=== PATIENT | male | born 1975 | race Caucasian/White ===

== ENCOUNTER 2020-01-27 13:23 | Inpatient (IN) | payer OTHER ==
[~2020-01-27] VITALS: Ht 182.9 cm; Wt 126.2 kg
--- NOTE | 2020-01-27 13:48 | NUR ---
dr lacey spoke with dr serna
[2020-01-27] MEDS ORDERED: testosterone IM (14:03)
[2020-01-27] MEDS ORDERED: LISI40TA PO (14:03)
--- NOTE | 2020-01-27 14:06 | NUR ---
pt notes generalized abd pain x 1 week, worsening x 2 days. pt notes he had emesis x 1 but otherwise denies n/v/d. pt is a&ox4, resps even and unlabored. no n/v at this time. bp and spo2 monitors in place. call light in reach. POC to admit for IV abx discussed between pt and MD. per MD lacey, no blood cx indicated before IV abx admin. at bedside. awaiting mill recorder from .
[2020-01-27] MEDS ORDERED: SODIUM CHLORIDE 0.9% 1,000 ML IV ONE (14:12)
[2020-01-27] MEDS ORDERED: ONDANSETRON 2MG/ML, 2ML ONE (14:15)
[2020-01-27] MEDS ORDERED: MORPHINE SULFATE 4 MG/ML, 1ML ONE (14:15)
[2020-01-27] MEDS ORDERED: CEFTRIAXONE PMX 1GM/50ML 50 ML ONE (14:15)
[2020-01-27 14:29] LABS: BASOPHILS # (AUTO) 0.01 x10^3/uL (0-0.1); BASOPHILS % (AUTO) 0 % (0-1); EOSINOPHILS # (AUTO) 0.27 x10^3/uL (0-0.4); EOSINOPHILS % (AUTO) 2 % (1-7); LYMPHOCYTES # (AUTO) 1.58 x10^3/uL (1-3.4); LYMPHOCYTES % (AUTO) 13 % (22-44); MD NO; MEAN CORPUSCULAR HEMOGLOBIN 28.1 pg (27.5-34.5); MEAN CORPUSCULAR HGB CONC 32.6 g/dL (33.2-36.2); MEAN PLATELET VOLUME 8.4 fL (7.4-10.4); MONOCYTES # (AUTO) 0.84 x10^3/uL (0.2-0.8); MONOCYTES % (AUTO) 7 % (2-9); NEUTROPHILS # (AUTO) 9.75 x10^3/uL (1.8-6.8); NEUTROPHILS % (AUTO) 78 % (42-75); PLATELET COUNT 270 x10^3/uL (130-400); RED BLOOD COUNT 6.43 x10^6/uL (4.38-5.82); RED CELL DISTRIBUTION WIDTH 15.3 % (9.4-14.8)
[2020-01-27] MEDS ORDERED: MORPHINE SULFATE 4 MG/ML, 1ML IVPush PRN (14:30)
[2020-01-27] MEDS ORDERED: METRONIDAZOLE PMX 500MG/100ML 100 ML IV ONE (14:30)
[2020-01-27] MEDS ORDERED: ONDANSETRON 2MG/ML, 2ML IVPush ONE (14:30)
[2020-01-27] MEDS ORDERED: CEFTRIAXONE PMX 1GM/50ML 50 ML IV ONE (14:30)
--- NOTE | 2020-01-27 14:36 | NUR ---
pt states pain level is 2/10 from 9/10, generalized abd pain. pt is a&o, resps even and unlabored, no n/v. rocephin infusing per emar. pt tolerating meds well, spo2 decreased to 89% on room air s/p morphine, oxygen applied via NC at 2L/min. at bedside. pt awaiting lab results, admit orders and room assignment at this time.
--- NOTE | 2020-01-27 14:38 | NUR ---
report given to primary RN Flores.
[2020-01-27 14:39] LABS: ALANINE AMINOTRANSFERASE 31 U/L (12-78); ALBUMIN 3.1 g/dL (3.4-5.0); ANION GAP 4 mmol/L (5-15); CALCIUM 8.7 mg/dL (8.5-10.1); CHLORIDE 106 mmol/L (98-107); CREATININE 1.12 mg/dL (0.7-1.3)
[2020-01-27 14:41] LABS: ALKALINE PHOSPHATASE 60 U/L (45-117); BILIRUBIN,TOTAL 0.7 mg/dL (0.2-1.0); TOTAL PROTEIN 7.7 g/dL (6.4-8.2)
[2020-01-27] MEDS ORDERED: METRONIDAZOLE PMX 500MG/100ML 100 ML ONE (15:21)
--- NOTE | 2020-01-27 15:25 | NUR ---
Pt ambulatory to bathroom and back to bed without difficulty. Pt denies pain at this time. Pt denies other needs. GI MD at bedside to evluate pt.
[2020-01-27] MEDS ORDERED: POLYETHYLENE GLYCOL 17 GM PACKET PO PRN (16:30)
[2020-01-27] MEDS ORDERED: DOCUSATE 100 MG CAPSULE PO PRN (16:30)
[2020-01-27] MEDS ORDERED: ONDANSETRON 2MG/ML, 2ML IVPush PRN (16:30)
[2020-01-27] MEDS ORDERED: ONDANSETRON ODT 4 MG PO PRN (16:30)
[2020-01-27] MEDS: NS + 20MEQ KCL 1,000 ML IV SCH (18:12)
[2020-01-27] MEDS: ACETAMINOPHEN 500 MG TABLET PO PRN (18:12)
[2020-01-27 20:47] VITALS: BP 155/89
[2020-01-27] MEDS: HEPARIN 5,000 UNITS/ML, 1ML SQ SCH (20:57)
[2020-01-27] MEDS: METRONIDAZOLE PMX 500MG/100ML 100 ML IV SCH (23:35)
[2020-01-28 02:53] VITALS: BP 157/96
[2020-01-28] MEDS: morphine SULFATE 10 MG/ML, 1ML IVPush PRN ×3 (03:17→15:52)
[2020-01-28] MEDS: NS + 20MEQ KCL 1,000 ML IV SCH (03:17)
[2020-01-28] MEDS: HEPARIN 5,000 UNITS/ML, 1ML SQ SCH ×3 (05:00→21:00)
[2020-01-28 06:37] LABS: BASOPHILS # (AUTO) 0.04 x10^3/uL (0-0.1); BASOPHILS % (AUTO) 0 % (0-1); EOSINOPHILS # (AUTO) 0.34 x10^3/uL (0-0.4); EOSINOPHILS % (AUTO) 3 % (1-7); LYMPHOCYTES % (AUTO) 17 % (22-44); MD NO; MEAN CORPUSCULAR HEMOGLOBIN 28.5 pg (27.5-34.5); MEAN CORPUSCULAR HGB CONC 32.3 g/dL (33.2-36.2); MEAN CORPUSCULAR VOLUME 88.2 fL (81-97); MEAN PLATELET VOLUME 8.6 fL (7.4-10.4); MONOCYTES # (AUTO) 0.71 x10^3/uL (0.2-0.8); MONOCYTES % (AUTO) 7 % (2-9); NEUTROPHILS # (AUTO) 7.51 x10^3/uL (1.8-6.8); NEUTROPHILS % (AUTO) 73 % (42-75); PLATELET COUNT 254 x10^3/uL (130-400); RED BLOOD COUNT 6.09 x10^6/uL (4.38-5.82); RED CELL DISTRIBUTION WIDTH 14.7 % (9.4-14.8)
[2020-01-28 06:42] LABS: ALBUMIN 2.8 g/dL (3.4-5.0); ANION GAP 4 mmol/L (5-15); CALCIUM 8.3 mg/dL (8.5-10.1); CHLORIDE 109 mmol/L (98-107)
[2020-01-28 06:46] LABS: ALANINE AMINOTRANSFERASE 27 U/L (12-78); ALKALINE PHOSPHATASE 54 U/L (45-117); BILIRUBIN,TOTAL 0.6 mg/dL (0.2-1.0); CREATININE 1.01 mg/dL (0.7-1.3)
[2020-01-28] MEDS: METRONIDAZOLE PMX 500MG/100ML 100 ML IV SCH ×3 (07:54→23:53)
[2020-01-28] MEDS: ACETAMINOPHEN 500 MG TABLET PO PRN ×2 (07:57→14:29)
[2020-01-28] MEDS: LISINOPRIL 40 MG TABLET PO SCH (07:57)
[2020-01-28 07:58] VITALS: BP 157/95
[2020-01-28] MEDS: CEFTRIAXONE PMX 1GM/50ML 50 ML IV SCH (14:26)
[2020-01-28 15:08] VITALS: BP 163/93
[2020-01-28 19:50] VITALS: BP 168/100
[2020-01-28] MEDS: HYDROcodone/APAP 5/325 TABLET PO PRN (20:07)
[2020-01-28 21:50] VITALS: BP 156/91
[2020-01-29] VITALS: BP 163/90
[2020-01-29] MEDS: LISINOPRIL 40 MG TABLET PO SCH (01:39)
[2020-01-29 02:16] VITALS: BP 172/116
[2020-01-29] MEDS: HEPARIN 5,000 UNITS/ML, 1ML SQ SCH ×2 (05:00→12:52)
[2020-01-29 05:26] LABS: BASOPHILS # (AUTO) 0.05 x10^3/uL (0-0.1); BASOPHILS % (AUTO) 1 % (0-1); EOSINOPHILS # (AUTO) 0.38 x10^3/uL (0-0.4); EOSINOPHILS % (AUTO) 4 % (1-7); LYMPHOCYTES # (AUTO) 1.65 x10^3/uL (1-3.4); LYMPHOCYTES % (AUTO) 18 % (22-44); MD NO; MEAN CORPUSCULAR HEMOGLOBIN 28.3 pg (27.5-34.5); MEAN CORPUSCULAR HGB CONC 32.5 g/dL (33.2-36.2); MEAN CORPUSCULAR VOLUME 87.2 fL (81-97); MEAN PLATELET VOLUME 8.7 fL (7.4-10.4); MONOCYTES % (AUTO) 9 % (2-9); NEUTROPHILS # (AUTO) 6.43 x10^3/uL (1.8-6.8); NEUTROPHILS % (AUTO) 69 % (42-75); PLATELET COUNT 282 x10^3/uL (130-400); RED BLOOD COUNT 5.89 x10^6/uL (4.38-5.82); RED CELL DISTRIBUTION WIDTH 14.8 % (9.4-14.8)
[2020-01-29 05:40] LABS: CHLORIDE 105 mmol/L (98-107)
[2020-01-29 05:44] LABS: ANION GAP 8 mmol/L (5-15); CALCIUM 8.5 mg/dL (8.5-10.1); CREATININE 0.94 mg/dL (0.7-1.3)
[2020-01-29] MEDS: HYDROcodone/APAP 5/325 TABLET PO PRN (06:08)
[2020-01-29] MEDS: METRONIDAZOLE PMX 500MG/100ML 100 ML IV SCH ×2 (08:13→16:23)
[2020-01-29 08:29] VITALS: BP 172/94
[2020-01-29] MEDS ORDERED: AMLODIPINE 5 MG TABLET PO SCH (10:30)
[2020-01-29] MEDS: CEFTRIAXONE PMX 1GM/50ML 50 ML IV SCH (14:15)
[2020-01-29 14:19] VITALS: BP 164/84
[2020-01-29] MEDS ORDERED: AMOX1TAB64 PO (15:03)
[2020-01-29] MEDS ORDERED: AMLO-150 PO (15:03)
== END 2020-01-29 17:55 | disposition home or self-care (01) | DRG 392 ==
LOC: ED 13:57 → EDIP 14:44 → 3N 17:47
PROVIDERS: ADMIT Family Medicine; ATTEND Family Medicine
DX: K57.20 Diverticulitis of large intestine with perforation and abscess without bleeding (principal); I10 Essential (primary) hypertension; G47.33 Obstructive sleep apnea (adult) (pediatric); D72.829 Elevated white blood cell count, unspecified; Z79.899 Other long term (current) drug therapy
CPT/HCPCS: 36415; 80048; 80053; 85025; 99285; G0378; J0696; J2405; J3480; J2270; J7030

== ENCOUNTER → 2020-01-27 | Outpatient (CLI) | payer OTHER ==
[~2020-01-27] MED LIST: AMLO-150 PO; AMOX1TAB64 PO; LISI40TA PO; OMNIPAQUE 350 MG/ML, 100ML BOTTLE ONE; testosterone IM
== END | disposition home or self-care (01) ==
LOC: RAD 09:55
PROVIDERS: ATTEND Nurse Practitioner Family
DX: K57.92 Diverticulitis of intestine, part unspecified, without perforation or abscess without bleeding (principal); K63.0 Abscess of intestine
CPT/HCPCS: 74177; Q9967

== ENCOUNTER 2020-04-10 13:49 | Outpatient (CLI) | payer OTHER ==
[~2020-04-10 13:49] MED LIST changes: +LIDOCAINE 1%, 10ML ONE; +LIDOCAINE-MPF 1%, 5ML ONE; -OMNIPAQUE 350 MG/ML, 100ML BOTTLE ONE
[2020-04-10] MEDS ORDERED: TRIAMCINOLONE ACETONIDE 40 MG/ML, 1ML ONE (14:16)
[2020-04-10] MEDS ORDERED: OMNIPAQUE 300 MG/ML, 10ML VIAL ONE (14:40)
[2020-04-10] MEDS ORDERED: GADOTERATE 2.5 MMOL/5 ML VIAL ONE (14:40)
== END 2020-04-10 23:59 | disposition home or self-care (01) ==
LOC: RAD 13:49
PROVIDERS: ATTEND Orthopaedic Surgery
DX: M24.151 Other articular cartilage disorders, right hip (principal)
CPT/HCPCS: 27093; 73525; 73722; A9575; J3301; J3490; Q9967

== ENCOUNTER 2020-07-11 15:47 | Emergency (ER) | payer OTHER ==
[~2020-07-11] VITALS: Ht 182.9 cm; Wt 119.0 kg
[~2020-07-11 15:47] MED LIST changes: -LIDOCAINE 1%, 10ML ONE; -LIDOCAINE-MPF 1%, 5ML ONE
[2020-07-11] MEDS ORDERED: ASPIRIN 81 MG TABLET CHEW PO ONE (16:00)
[2020-07-11] MEDS ORDERED: SODIUM CHLORIDE FLUSH 10ML SYR IVF ONE (16:00)
[2020-07-11] MEDS ORDERED: ASPIRIN 81 MG TABLET CHEW ONE (16:11)
--- NOTE | 2020-07-11 16:19 | NUR ---
ASSUMED CARE OF PATIENT. PATIENT REPORETS HIGH BLOOD PRESSURE WITH SOME CHEST TIGHTNESS. PT HAS A HISTORY OF HTN. 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 NSR NOTED. AT BEDSIDE. CALL LIGHT IN PLACE. WILL CONTINUE TO MONITOR.
[2020-07-11 17:06] LABS: BASOPHILS # (AUTO) 0.03 x10^3/uL (0-0.1); BASOPHILS % (AUTO) 0 % (0-1); EOSINOPHILS # (AUTO) 1.11 x10^3/uL (0-0.4); EOSINOPHILS % (AUTO) 12 % (1-7); LYMPHOCYTES # (AUTO) 1.77 x10^3/uL (1-3.4); LYMPHOCYTES % (AUTO) 19 % (22-44); MD NO; MEAN CORPUSCULAR HEMOGLOBIN 30.3 pg (27.5-34.5); MEAN CORPUSCULAR HGB CONC 33.2 g/dL (33.2-36.2); MEAN CORPUSCULAR VOLUME 91.3 fL (81-97); MEAN PLATELET VOLUME 8.4 fL (7.4-10.4); MONOCYTES # (AUTO) 0.68 x10^3/uL (0.2-0.8); MONOCYTES % (AUTO) 7 % (2-9); NEUTROPHILS # (AUTO) 5.95 x10^3/uL (1.8-6.8); NEUTROPHILS % (AUTO) 62 % (42-75); PLATELET COUNT 310 x10^3/uL (130-400); RED BLOOD COUNT 5.76 x10^6/uL (4.38-5.82); RED CELL DISTRIBUTION WIDTH 13.4 % (9.4-14.8)
[2020-07-11] MEDS ORDERED: MAALOX/HYOSCYAMINE/LIDOCAINE 45 ML BTL ONE (17:13)
[2020-07-11 17:14] LABS: ALBUMIN 3.7 g/dL (3.4-5.0); ANION GAP 5 mmol/L (5-15); CALCIUM 9.5 mg/dL (8.5-10.1); CHLORIDE 106 mmol/L (98-107)
[2020-07-11 17:19] LABS: CREATININE 1.13 mg/dL (0.7-1.3); TROPONIN I < 0.015 ng/mL (0.000-0.045)
[2020-07-11] MEDS ORDERED: MAALOX/HYOSCYAMINE/LIDOCAINE 45 ML BTL PO ONE (17:30)
--- NOTE | 2020-07-11 18:28 | NUR ---
PT RESTING IN ROOM. AT BIEDSIDE. VS STABLE. NO ACUTE DISTRESS NOTED. WILL CONTINUE TO MONITOR.
--- NOTE | 2020-07-11 19:18 | NUR ---
DR GLOVER HAD UPADTED PATIENT.
[2020-07-11 19:47] VITALS: BP 153/76
== END 2020-07-11 19:49 | disposition home or self-care (01) ==
LOC: ED 18:03
DX: I10 Essential (primary) hypertension (principal); R07.89 Other chest pain; R42 Dizziness and giddiness; I21.3 ST elevation (STEMI) myocardial infarction of unspecified site
CPT/HCPCS: 36415; 71045; 80048; 82040; 83880; 84484; 85025; 93005; 99285